=== PATIENT | male | born 1965 | race African-American/Black ===

== ENCOUNTER 2017-02-25 20:35 | Inpatient (IN) | payer MEDICARE, MEDICAID ==
[~2017-02-25] VITALS: Ht 167.6 cm; Wt 78.1 kg
[~2017-02-25 20:35] MED LIST: AMLO-512 PO; HYDR25TA PO; LISI-618 PO; LOVA20 PO; METF500T PO; QUET200T PO
[2017-02-25 20:47] LABS: GLUCOSE,POINT OF CARE 302 MG/DL (70-110)
[2017-02-25 21:05] LABS: BASOPHILS % (AUTO) 0.9 % (0.0-2.0); EOSINOPHILS % (AUTO) 3.5 % (1.0-6.0); HEMATOCRIT 42.4 % (41-53); HEMOGLOBIN 13.7 g/dL (13.5-17.5); LYMPHOCYTES # (AUTO) 1.4 K/uL (1.0-4.8); LYMPHOCYTES % (AUTO) 29.5 % (22.0-44.0); MEAN CORPUSCULAR HEMOGLOBIN 31.3 pg (26.0-34.0); MEAN CORPUSCULAR HGB CONC 32.3 G/dL (31.0-37.0); MEAN CORPUSCULAR VOLUME 97 fL (80-100); MONOCYTES # (AUTO) 0.7 K/uL (0.1-1.0); MONOCYTES % (AUTO) 14.5 % (2.0-9.0); NEUTROPHILS # (AUTO) 2.4 K/uL (1.8-7.7); NEUTROPHILS % (AUTO) 51.6 % (40.0-70.0); PLATELET COUNT (AUTO) 205 K/uL (150-450); RED BLOOD CELL COUNT(AUTO) 4.38 MIL/uL (4.50-5.90); RED CELL DISTRIBUTION WIDTH 15.4 % (11.5-14.5); WHITE BLOOD COUNT (AUTO) 4.7 K/uL (4.5-11.0)
[2017-02-25 21:17] LABS: ANION GAP 9 mmol/L (8-16); CALCIUM, TOTAL 9.7 mg/dL (8.8-10.5); CARBON DIOXIDE 28 mmol/L (22-29); CHLORIDE 103 mmol/L (98-107); CREATININE 1.29 mg/dL (0.60-1.30); GLOMERULAR FILTR. RATE CALC > 60 mL/min (>60); POTASSIUM 4.5 mmol/L (3.5-5.1); SODIUM SERUM 140 mmol/L (136-145); UREA NITROGEN, BLOOD 9 mg/dL (7-18)
[2017-02-25 21:23] LABS: ALANINE AMINOTRANSFERASE 80 U/L (12-78); ALBUMIN 3.7 g/dL (3.4-5.0); ASPARTATE AMINOTRANSFERASE 66 U/L (15-37); BILIRUBIN,TOTAL 0.5 mg/dL (0.1-1.0); TOTAL PROTEIN, SERUM 8.3 g/dL (6.4-8.2)
[2017-02-25 21:55] LABS: RBC MORPHOLOGY COMMENT NORMAL RBC MORPH
[2017-02-26] MEDS ORDERED: QUEtiapine FUMARATE 100 MG TABLET PO PRN (02:00)
[2017-02-26] MEDS ORDERED: DiphenhydrAMINE HCL 25 MG CAPSULE PO ONE (02:00)
[2017-02-26] MEDS ORDERED: LORazepam 2 MG TABLET PO ONE (02:00)
[2017-02-26] MEDS ORDERED: QUEtiapine FUMARATE 100 MG TABLET PO ONE (02:00)
[2017-02-26] MEDS ORDERED: ZOLPIDEM TARTRATE 10 MG TABLET PO PRN (02:00)
[2017-02-26] MEDS ORDERED: LORazepam 2 MG TABLET PO PRN (02:00)
[2017-02-26 03:39] VITALS: BP 139/98
[2017-02-26] MEDS ORDERED: PNEUMOCOCCAL VACCINE POLYVALENT 0.5 ML VIAL [PPSV23] IM ONE (04:45)
[2017-02-26 05:02] LABS: APPEARANCE,URINE TURBID (CLEAR); GLUCOSE, URINE (UA) >=1000 mg/dL (NEGATIVE); KETONES,URINE 15 mg/dL (NEGATIVE); LEUKOCYTE ESTERASE ,URINE NEGATIVE (NEGATIVE); OCCULT BLOOD,URINE SMALL (NEGATIVE); PROTEIN,URINE SEE CONFIRM (NEGATIVE)
[2017-02-26 05:06] LABS: ADD UA MICROSCOPIC YES
[2017-02-26 05:22] LABS: SULFOSALICYLIC ACID,URINE 1+ (Negative)
[2017-02-26 05:24] LABS: SQUAMOUS EPITHELIAL CELL,UR Few /LPF (None Seen)
[2017-02-26 05:25] LABS: URIC ACID CRYSTALS,URINE Moderate /LPF (None Seen)
[2017-02-26] MEDS ORDERED: PETROLATUM,WHITE 71 GM JELLY TP PRN (08:30)
[2017-02-26] MEDS ORDERED: ONDANSETRON HCL 4 MG TABLET PO PRN (08:30)
[2017-02-26] MEDS ORDERED: CloNIDine HCL 0.1 MG TABLET PO PRN (08:30)
[2017-02-26] MEDS ORDERED: LOPERAMIDE HCL 2 MG CAPSULE PO PRN (08:30)
[2017-02-26] MEDS ORDERED: MAG HYDROX/AL HYDROX/SIMETH ES 30 ML SUSPENSION UDCUP PO PRN (08:30)
[2017-02-26] MEDS ORDERED: BACITRACIN 28.4 GM OINTMENT TP PRN (08:30)
[2017-02-26] MEDS ORDERED: ACETAMINOPHEN 325 MG TABLET PO PRN (08:30)
[2017-02-26] MEDS ORDERED: DEXTROSE 50%-WATER 25 GM/50 ML SYRINGE IVP PRN (08:30)
[2017-02-26] MEDS ORDERED: MAGNESIUM HYDROXIDE SUSPENSION 30 ML UDCUP PO PRN (08:30)
[2017-02-26] MEDS ORDERED: IBUPROFEN 600 MG TABLET PO PRN (08:30)
[2017-02-26] MEDS ORDERED: ALBUTEROL SULFATE HFA 90 MCG/PUFF 8 GM INHALER IH PRN (08:30)
[2017-02-26] MEDS ORDERED: BENZOCAINE/MENTHOL LOZENGE [8 LOZENGES/PACKET] MM PRN (08:30)
[2017-02-26 09:00] VITALS: BP 163/103
[2017-02-26] MEDS: LISINOPRIL 5 MG TABLET PO SCH (09:10)
[2017-02-26] MEDS: LOVASTATIN 20 MG TABLET PO SCH (09:11)
[2017-02-26] MEDS: AmLODIPine BESYLATE 10 MG TABLET PO SCH (09:13)
[2017-02-26] MEDS: INSULIN ASPART 100 UNITS/ML SQ PRN ×3 (11:56→20:43)
[2017-02-26] MEDS: MetFORMIN HCL 500 MG TABLET PO SCH (16:42)
[2017-02-26 17:05] VITALS: BP 137/104
[2017-02-26] MEDS ORDERED: LORazepam 1 MG TABLET PO SCH (19:15)
[2017-02-26] MEDS: OLANZapine 5 MG TABLET PO SCH (20:31)
[2017-02-26 23:08] VITALS: BP 144/98
[2017-02-26] MEDS: LORazepam 1 MG TABLET PO SCH (23:17)
[2017-02-27 05:37] LABS: GLUCOSE,POINT OF CARE 291 MG/DL (70-110)
[2017-02-27] MEDS: INSULIN ASPART 100 UNITS/ML SQ PRN ×4 (06:53→20:32)
[2017-02-27] MEDS: MetFORMIN HCL 500 MG TABLET PO SCH ×2 (06:53→16:38)
[2017-02-27 06:58] LABS: HEMOGLOBIN A1C 9.9 % (4.5-6.2)
[2017-02-27 07:07] LABS: CHOL/HDL RATIO 4.4 (4.2-7.3); THYROID STIMULATING HORMONE 0.76 uIU/mL (0.36-3.74)
[2017-02-27 08:08] VITALS: BP 141/97
[2017-02-27] MEDS: FLUoxetine HCL 20 MG CAPSULE PO SCH (08:26)
[2017-02-27] MEDS: AmLODIPine BESYLATE 10 MG TABLET PO SCH (08:26)
[2017-02-27] MEDS: LOVASTATIN 20 MG TABLET PO SCH (08:26)
[2017-02-27] MEDS: LISINOPRIL 5 MG TABLET PO SCH (08:26)
[2017-02-27] MEDS: LORazepam 1 MG TABLET PO SCH ×3 (08:26→16:23)
[2017-02-27] MEDS ORDERED: INSULIN ASPART 100 UNITS/ML SQ ONE (11:30)
[2017-02-27 16:55] VITALS: BP 135/96
[2017-02-27] MEDS: OLANZapine 5 MG TABLET PO SCH (20:13)
[2017-02-28 05:37] LABS: GLUCOSE,POINT OF CARE 315 MG/DL (70-110)
[2017-02-28] MEDS: MetFORMIN HCL 500 MG TABLET PO SCH ×2 (06:29→16:36)
[2017-02-28] MEDS: INSULIN ASPART 100 UNITS/ML SQ PRN ×4 (07:16→20:53)
[2017-02-28 08:00] VITALS: BP 118/85
[2017-02-28] MEDS: CHOLECALCIFEROL (VIT D3) 1,000 UNITS TABLET PO SCH (08:10)
[2017-02-28] MEDS: LISINOPRIL 5 MG TABLET PO SCH (08:11)
[2017-02-28] MEDS: FLUoxetine HCL 20 MG CAPSULE PO SCH (08:11)
[2017-02-28] MEDS: LORazepam 1 MG TABLET PO SCH (08:11)
[2017-02-28] MEDS: LOVASTATIN 20 MG TABLET PO SCH (08:11)
[2017-02-28] MEDS: AmLODIPine BESYLATE 10 MG TABLET PO SCH (08:11)
[2017-02-28] MEDS ORDERED: LORazepam 1 MG TABLET PO SCH (09:00)
[2017-02-28 16:28] VITALS: BP 135/99
[2017-02-28] MEDS ORDERED: LORazepam 2 MG/ML VIAL IM ONE (20:00)
[2017-02-28] MEDS ORDERED: LORazepam 1 MG TABLET PO ONE (20:00)
[2017-02-28] MEDS: OLANZapine 5 MG TABLET PO SCH (20:32)
[2017-03-01 05:37] LABS: GLUCOSE,POINT OF CARE 313 MG/DL (70-110)
[2017-03-01] MEDS: MetFORMIN HCL 500 MG TABLET PO SCH ×2 (06:47→16:47)
[2017-03-01] MEDS: INSULIN ASPART 100 UNITS/ML SQ PRN ×4 (07:04→20:36)
[2017-03-01 08:00] VITALS: BP 158/110
[2017-03-01] MEDS: LISINOPRIL 5 MG TABLET PO SCH (08:17)
[2017-03-01] MEDS: FLUoxetine HCL 20 MG CAPSULE PO SCH (08:17)
[2017-03-01] MEDS: LOVASTATIN 20 MG TABLET PO SCH (08:17)
[2017-03-01] MEDS: CHOLECALCIFEROL (VIT D3) 1,000 UNITS TABLET PO SCH (08:18)
[2017-03-01] MEDS: AmLODIPine BESYLATE 10 MG TABLET PO SCH (08:18)
[2017-03-01 09:00] VITALS: BP 127/85
[2017-03-01 17:43] VITALS: BP 121/88
[2017-03-01] MEDS: OLANZapine 5 MG TABLET PO SCH (20:51)
[2017-03-02 03:58] LABS: HEPATITIS Bs ANTIGEN SCREEN P Negative (Negative); HEPATITIS C AB SCREEN 0.1 s/co ratio (0.0-0.9)
[2017-03-02 05:17] LABS: GLUCOSE,POINT OF CARE 298 MG/DL (70-110)
[2017-03-02] MEDS: MetFORMIN HCL 500 MG TABLET PO SCH ×2 (06:47→16:42)
[2017-03-02] MEDS: INSULIN ASPART 100 UNITS/ML SQ PRN ×3 (06:55→17:21)
[2017-03-02 08:34] VITALS: BP 113/98
[2017-03-02] MEDS ORDERED: FLUoxetine HCL 20 MG CAPSULE PO SCH (09:00)
[2017-03-02] MEDS: AmLODIPine BESYLATE 10 MG TABLET PO SCH (09:12)
[2017-03-02] MEDS: LISINOPRIL 5 MG TABLET PO SCH (09:12)
[2017-03-02] MEDS: LOVASTATIN 20 MG TABLET PO SCH (09:13)
[2017-03-02] MEDS: CHOLECALCIFEROL (VIT D3) 1,000 UNITS TABLET PO SCH (09:13)
[2017-03-02 11:12] LABS: GLUCOSE COMMENT 1 Received Meds; GLUCOSE,POINT OF CARE 373 MG/DL (70-110)
[2017-03-02] MEDS ORDERED: FLUO-191 PO (15:06)
[2017-03-02] MEDS ORDERED: OLAN5TAB2 PO (15:07)
[2017-03-02] MEDS ORDERED: VITAD1000 PO (15:09)
[2017-03-02] MEDS ORDERED: METF500T4 PO (15:10)
[2017-03-02 17:12] LABS: GLUCOSE COMMENT 1 Received Meds; GLUCOSE,POINT OF CARE 281 MG/DL (70-110)
== END 2017-03-02 18:45 | disposition home or self-care (01) | DRG 885 ==
LOC: EMS 20:37 → 3EX 02-26 02:30
PROVIDERS: ADMIT Psychiatry & Neurology Psychiatry; ATTEND Psychiatry & Neurology Psychiatry
DX: F25.0 Schizoaffective disorder, bipolar type (principal); F15.20 Other stimulant dependence, uncomplicated; R45.851 Suicidal ideations; F10.20 Alcohol dependence, uncomplicated; Y90.0 Blood alcohol level of less than 20 mg/100 ml; E78.5 Hyperlipidemia, unspecified; F29 Unspecified psychosis not due to a substance or known physiological condition; I10 Essential (primary) hypertension; G47.00 Insomnia, unspecified; E11.65 Type 2 diabetes mellitus with hyperglycemia; K59.00 Constipation, unspecified; E55.9 Vitamin D deficiency, unspecified; J44.9 Chronic obstructive pulmonary disease, unspecified; Z59.0 Homelessness; Z91.14 Patient's other noncompliance with medication regimen; Z79.899 Other long term (current) drug therapy; Z79.84 Long term (current) use of oral hypoglycemic drugs; Z71.41 Alcohol abuse counseling and surveillance of alcoholic; Z71.51 Drug abuse counseling and surveillance of drug abuser; Z28.21 Immunization not carried out because of patient refusal
CPT/HCPCS: 80074; 82306; 82962; 83036; 84443; 99285; G0480; J1815

== ENCOUNTER 2017-10-04 12:54 | Emergency (ER) | payer OTHER, MEDICAID ==
[~2017-10-04] VITALS: Ht 167.6 cm; Wt 81.8 kg
[~2017-10-04 12:54] MED LIST changes: +FLUO-191 PO; -HYDR25TA PO; +OLAN5TAB2 PO; -QUET200T PO; +VITAD1000 PO
[2017-10-04] MEDS ORDERED: LISI-660 PO (13:02)
[2017-10-04 13:08] LABS: GLUCOSE,POINT OF CARE 149 MG/DL (70-110)
[2017-10-04 14:35] VITALS: BP 121/81
== END 2017-10-04 14:54 | disposition home or self-care (01) ==
LOC: EMS 12:55
DX: J40 Bronchitis, not specified as acute or chronic (principal); Z76.0 Encounter for issue of repeat prescription; E11.9 Type 2 diabetes mellitus without complications; I10 Essential (primary) hypertension; F20.9 Schizophrenia, unspecified; Z59.0 Homelessness; Z87.891 Personal history of nicotine dependence
CPT/HCPCS: 82962; 99283

== ENCOUNTER 2017-12-16 22:15 | Inpatient (IN) | payer MEDICARE, MEDICAID ==
[~2017-12-16] VITALS: Ht 167.6 cm; Wt 82.1 kg
[~2017-12-16 22:15] MED LIST changes: -LISI-618 PO; +LISI-660 PO
[2017-12-16] MEDS ORDERED: HYDR25TA PO (22:24)
[2017-12-16 22:27] LABS: GLUCOSE,POINT OF CARE 299 MG/DL (70-110)
[2017-12-16 22:45] LABS: BASOPHILS # (AUTO) 0.06 K/uL (0.00-0.20); BASOPHILS % (AUTO) 0.6 % (0.0-2.0); EOSINOPHILS # (AUTO) 0.09 K/uL (0.00-0.70); EOSINOPHILS % (AUTO) 1.05 % (1.0-6.0); HEMATOCRIT 37.4 % (41-53); HEMOGLOBIN 12.3 g/dL (13.5-17.5); LYMPHOCYTES % (AUTO) 22.1 % (22.0-44.0); MEAN CORPUSCULAR HEMOGLOBIN 31.5 pg (26.0-34.0); MEAN CORPUSCULAR HGB CONC 32.9 G/dL (31.0-37.0); MEAN CORPUSCULAR VOLUME 96 fL (80-100); MONOCYTES # (AUTO) 0.7 K/uL (0.1-1.0); MONOCYTES % (AUTO) 7.7 % (2.0-9.0); NEUTROPHILS # (AUTO) 6.2 K/uL (1.8-7.7); NEUTROPHILS % (AUTO) 68.6 % (40.0-70.0); PLATELET COUNT (AUTO) 237 K/uL (150-450); RED BLOOD CELL COUNT(AUTO) 3.91 MIL/uL (4.50-5.90); RED CELL DISTRIBUTION WIDTH 13.5 % (11.5-14.5)
[2017-12-16 22:52] LABS: ANION GAP 13 mmol/L (8-16); CALCIUM, TOTAL 9.8 mg/dL (8.8-10.5); CARBON DIOXIDE 26 mmol/L (22-29); CHLORIDE 95 mmol/L (98-107); CREATININE 1.34 mg/dL (0.60-1.30); GLOMERULAR FILTR. RATE CALC > 60 mL/min (>60); GLUCOSE,RANDOM 287 mg/dL (70-110); POTASSIUM 3.4 mmol/L (3.5-5.1); SODIUM SERUM 134 mmol/L (136-145); UREA NITROGEN, BLOOD 17 mg/dL (7-18)
[2017-12-16 22:57] LABS: ALANINE AMINOTRANSFERASE 19 U/L (12-78); ALBUMIN 4.2 g/dL (3.4-5.0); ALKALINE PHOSPHATASE 85 U/L (46-116); ASPARTATE AMINOTRANSFERASE 18 U/L (15-37); BILIRUBIN,TOTAL 0.5 mg/dL (0.1-1.0); TOTAL PROTEIN, SERUM 8.8 g/dL (6.4-8.2)
[2017-12-16] MEDS ORDERED: HALOPERIDOL 5 MG TABLET PO ONE (23:30)
[2017-12-16] MEDS ORDERED: LORazepam 2 MG TABLET PO ONE (23:30)
[2017-12-16] MEDS ORDERED: ZOLPIDEM TARTRATE 10 MG TABLET PO PRN (23:45)
[2017-12-16] MEDS ORDERED: HALOPERIDOL 5 MG TABLET PO PRN (23:45)
[2017-12-17 00:22] LABS: GLUCOSE,POINT OF CARE 253 MG/DL (70-110)
[2017-12-17 00:51] LABS: AMPHET/METH SCREEN,URINE POSITIVE (NEGATIVE); BARBITURATE SCREEN, URINE NEGATIVE (NEGATIVE); BENZODIAZEPINES SCREEN,URINE NEGATIVE (NEGATIVE); CANNABINOID SCREEN,URINE NEGATIVE (NEGATIVE); COCAINE SCREEN,URINE POSITIVE (NEGATIVE); METHADONE SCREEN, URINE NEGATIVE (NEGATIVE); OPIATE SCREEN,URINE NEGATIVE (NEGATIVE); PHENCYCLIDINE SCREEN,URINE NEGATIVE (NEGATIVE)
[2017-12-17 01:45] VITALS: BP 127/97
[2017-12-17 02:07] LABS: GLUCOMETER DEV NAME(LOC) BV2S; GLUCOSE,POINT OF CARE 208 MG/DL (70-110)
[2017-12-17] MEDS ORDERED: POTASSIUM CHLORIDE 20 MEQ ER TABLET PO ONE (08:15)
[2017-12-17] MEDS ORDERED: MAG HYDROX/AL HYDROX/SIMETH ES 30 ML SUSPENSION UDCUP PO PRN (08:15)
[2017-12-17] MEDS ORDERED: CloNIDine HCL 0.1 MG TABLET PO PRN (08:15)
[2017-12-17] MEDS ORDERED: ONDANSETRON HCL 4 MG TABLET PO PRN (08:15)
[2017-12-17] MEDS ORDERED: MAGNESIUM HYDROXIDE SUSPENSION 30 ML UDCUP PO PRN (08:15)
[2017-12-17] MEDS ORDERED: BACITRACIN 28.4 GM OINTMENT TP PRN (08:15)
[2017-12-17] MEDS ORDERED: ALBUTEROL SULFATE HFA 90 MCG/PUFF 8 GM INHALER IH PRN (08:15)
[2017-12-17] MEDS ORDERED: BENZOCAINE/MENTHOL LOZENGE MM PRN (08:15)
[2017-12-17] MEDS ORDERED: LOPERAMIDE HCL 2 MG CAPSULE PO PRN (08:15)
[2017-12-17] MEDS ORDERED: GLUCAGON,HUMAN RECOMBINANT 1 MG VIAL IM PRN (08:15)
[2017-12-17] MEDS ORDERED: PETROLATUM,WHITE 71 GM JELLY TP PRN (08:15)
[2017-12-17 08:29] LABS: CHOL/HDL RATIO 3.4 (4.2-7.3)
[2017-12-17] MEDS: LORazepam 2 MG TABLET PO PRN (08:30)
[2017-12-17] MEDS: OMEPRAZOLE 20 MG CAPSULE PO SCH (08:30)
[2017-12-17] MEDS: HYDROCHLOROTHIAZIDE 25 MG TABLET PO SCH (08:30)
[2017-12-17] MEDS: DOCUSATE SODIUM 100 MG CAPSULE PO SCH (08:30)
[2017-12-17] MEDS: AmLODIPine BESYLATE 10 MG TABLET PO SCH (08:30)
[2017-12-17 08:57] VITALS: BP 122/88
[2017-12-17] MEDS: FLUoxetine HCL 20 MG CAPSULE PO SCH (09:22)
[2017-12-17] MEDS: INSULIN ASPART 100 UNITS/ML SQ PRN ×3 (11:04→20:44)
[2017-12-17] MEDS: LOVASTATIN 20 MG TABLET PO SCH (12:24)
[2017-12-17 16:07] VITALS: BP 124/89
[2017-12-17 16:23] LABS: GLUCOMETER DEV NAME(LOC) BV2S; GLUCOSE,POINT OF CARE 314 MG/DL (70-110)
[2017-12-17 16:23] LABS: GLUCOMETER DEV NAME(LOC) BV2S; GLUCOSE,POINT OF CARE 214 MG/DL (70-110)
[2017-12-17] MEDS: MetFORMIN HCL 500 MG TABLET PO SCH (16:43)
[2017-12-17 20:17] LABS: GLUCOMETER DEV NAME(LOC) BV2S; GLUCOSE,POINT OF CARE 290 MG/DL (70-110)
[2017-12-17] MEDS: OLANZapine 5 MG TABLET PO SCH (20:42)
[2017-12-18 06:47] VITALS: BP 128/90
[2017-12-18] MEDS: MetFORMIN HCL 500 MG TABLET PO SCH ×2 (06:54→16:37)
[2017-12-18] MEDS: INSULIN ASPART 100 UNITS/ML SQ PRN ×4 (06:58→20:42)
[2017-12-18 07:07] LABS: GLUCOMETER DEV NAME(LOC) BV2S; GLUCOSE,POINT OF CARE 245 MG/DL (70-110)
[2017-12-18 07:54] LABS: ANION GAP 9 mmol/L (8-16); CALCIUM, TOTAL 9.3 mg/dL (8.8-10.5); CARBON DIOXIDE 30 mmol/L (22-29); CHLORIDE 97 mmol/L (98-107); CREATININE 1.21 mg/dL (0.60-1.30); GLOMERULAR FILTR. RATE CALC > 60 mL/min (>60); GLUCOSE,RANDOM 243 mg/dL (70-110); POTASSIUM 3.7 mmol/L (3.5-5.1); SODIUM SERUM 136 mmol/L (136-145); UREA NITROGEN, BLOOD 15 mg/dL (7-18)
[2017-12-18 08:40] VITALS: BP 118/81
[2017-12-18] MEDS: FLUoxetine HCL 20 MG CAPSULE PO SCH (08:44)
[2017-12-18] MEDS: OMEPRAZOLE 20 MG CAPSULE PO SCH (08:44)
[2017-12-18] MEDS: DOCUSATE SODIUM 100 MG CAPSULE PO SCH (08:44)
[2017-12-18] MEDS: LOVASTATIN 20 MG TABLET PO SCH (08:44)
[2017-12-18] MEDS: HYDROCHLOROTHIAZIDE 25 MG TABLET PO SCH (08:44)
[2017-12-18] MEDS: AmLODIPine BESYLATE 10 MG TABLET PO SCH (08:44)
[2017-12-18 11:12] LABS: GLUCOMETER DEV NAME(LOC) BV2S; GLUCOSE,POINT OF CARE 366 MG/DL (70-110)
[2017-12-18] MEDS: LORazepam 2 MG TABLET PO PRN (11:51)
[2017-12-18 16:13] VITALS: BP 119/87
[2017-12-18 17:58] LABS: GLUCOMETER DEV NAME(LOC) BV2S; GLUCOSE,POINT OF CARE 305 MG/DL (70-110)
[2017-12-18] MEDS: OLANZapine 5 MG TABLET PO SCH (20:36)
[2017-12-19 00:15] VITALS: BP 112/70
[2017-12-19 00:37] LABS: GLUCOMETER DEV NAME(LOC) BV2S; GLUCOSE,POINT OF CARE 280 MG/DL (70-110)
[2017-12-19 06:48] LABS: GLUCOMETER DEV NAME(LOC) BV2S; GLUCOSE,POINT OF CARE 225 MG/DL (70-110)
[2017-12-19] MEDS: MetFORMIN HCL 500 MG TABLET PO SCH ×2 (07:11→17:24)
[2017-12-19] MEDS: INSULIN ASPART 100 UNITS/ML SQ PRN ×4 (07:14→20:55)
[2017-12-19 08:32] VITALS: BP 113/73
[2017-12-19] MEDS: DOCUSATE SODIUM 100 MG CAPSULE PO SCH (08:37)
[2017-12-19] MEDS: OMEPRAZOLE 20 MG CAPSULE PO SCH (08:37)
[2017-12-19] MEDS: AmLODIPine BESYLATE 10 MG TABLET PO SCH (08:37)
[2017-12-19] MEDS: LOVASTATIN 20 MG TABLET PO SCH (08:37)
[2017-12-19] MEDS: HYDROCHLOROTHIAZIDE 25 MG TABLET PO SCH (08:37)
[2017-12-19] MEDS: FLUoxetine HCL 20 MG CAPSULE PO SCH (08:38)
[2017-12-19 11:01] VITALS: BP 110/72
[2017-12-19] MEDS: ACETAMINOPHEN 325 MG TABLET PO PRN (11:01)
[2017-12-19 11:32] LABS: GLUCOMETER DEV NAME(LOC) BV2S; GLUCOSE,POINT OF CARE 251 MG/DL (70-110)
[2017-12-19] MEDS: LORazepam 2 MG TABLET PO PRN (14:58)
[2017-12-19 16:22] VITALS: BP 124/89
[2017-12-19 16:52] LABS: GLUCOMETER DEV NAME(LOC) BV2S; GLUCOSE,POINT OF CARE 383 MG/DL (70-110)
[2017-12-19] MEDS: OLANZapine 5 MG TABLET PO SCH (20:50)
[2017-12-19 21:03] LABS: GLUCOMETER DEV NAME(LOC) BV2S; GLUCOSE,POINT OF CARE 220 MG/DL (70-110)
[2017-12-20 01:06] VITALS: BP 132/86
[2017-12-20 06:02] LABS: GLUCOMETER DEV NAME(LOC) BV2S; GLUCOSE,POINT OF CARE 229 MG/DL (70-110)
[2017-12-20] MEDS: MetFORMIN HCL 500 MG TABLET PO SCH ×2 (06:42→16:47)
[2017-12-20] MEDS: INSULIN ASPART 100 UNITS/ML SQ PRN ×4 (06:42→20:39)
[2017-12-20 07:40] VITALS: BP 136/89
[2017-12-20 08:00] VITALS: BP 136/89
[2017-12-20] MEDS: DOCUSATE SODIUM 100 MG CAPSULE PO SCH (08:18)
[2017-12-20] MEDS: HYDROCHLOROTHIAZIDE 25 MG TABLET PO SCH (08:18)
[2017-12-20] MEDS: FLUoxetine HCL 20 MG CAPSULE PO SCH (08:18)
[2017-12-20] MEDS: OMEPRAZOLE 20 MG CAPSULE PO SCH (08:19)
[2017-12-20] MEDS: AmLODIPine BESYLATE 10 MG TABLET PO SCH (08:19)
[2017-12-20] MEDS: LOVASTATIN 20 MG TABLET PO SCH (08:19)
[2017-12-20 11:12] LABS: GLUCOMETER DEV NAME(LOC) BV2S; GLUCOSE,POINT OF CARE 228 MG/DL (70-110)
[2017-12-20 12:54] VITALS: BP 128/82
[2017-12-20] MEDS: ACETAMINOPHEN 325 MG TABLET PO PRN (12:54)
[2017-12-20] MEDS: IBUPROFEN 600 MG TABLET PO PRN (16:23)
[2017-12-20 16:24] VITALS: BP 131/86
[2017-12-20 18:37] LABS: GLUCOMETER DEV NAME(LOC) BV2S; GLUCOSE,POINT OF CARE 221 MG/DL (70-110)
[2017-12-20] MEDS: GlipiZIDE 10 MG TABLET PO SCH (19:38)
[2017-12-20 20:17] LABS: GLUCOMETER DEV NAME(LOC) BV2S; GLUCOSE,POINT OF CARE 236 MG/DL (70-110)
[2017-12-20] MEDS: OLANZapine 5 MG TABLET PO SCH (20:31)
[2017-12-21 00:50] VITALS: BP 140/90
[2017-12-21 06:48] LABS: GLUCOMETER DEV NAME(LOC) BV2S; GLUCOSE,POINT OF CARE 214 MG/DL (70-110)
[2017-12-21] MEDS: GlipiZIDE 10 MG TABLET PO SCH ×2 (07:05→16:38)
[2017-12-21] MEDS: MetFORMIN HCL 500 MG TABLET PO SCH ×2 (07:05→16:43)
[2017-12-21] MEDS: INSULIN ASPART 100 UNITS/ML SQ PRN ×4 (07:16→20:34)
[2017-12-21] MEDS: FLUoxetine HCL 20 MG CAPSULE PO SCH (08:19)
[2017-12-21] MEDS: AmLODIPine BESYLATE 10 MG TABLET PO SCH (08:19)
[2017-12-21] MEDS: DOCUSATE SODIUM 100 MG CAPSULE PO SCH (08:19)
[2017-12-21] MEDS: OMEPRAZOLE 20 MG CAPSULE PO SCH (08:19)
[2017-12-21] MEDS: HYDROCHLOROTHIAZIDE 25 MG TABLET PO SCH (08:19)
[2017-12-21] MEDS: LOVASTATIN 20 MG TABLET PO SCH (08:19)
[2017-12-21 08:29] VITALS: BP 118/81
[2017-12-21 11:07] LABS: GLUCOMETER DEV NAME(LOC) BV2S; GLUCOSE,POINT OF CARE 174 MG/DL (70-110)
[2017-12-21 12:04] VITALS: BP 124/78
[2017-12-21] MEDS: IBUPROFEN 600 MG TABLET PO PRN (12:04)
[2017-12-21 16:07] VITALS: BP 121/80
[2017-12-21 16:32] LABS: GLUCOMETER DEV NAME(LOC) BV2S; GLUCOSE,POINT OF CARE 162 MG/DL (70-110)
[2017-12-21 20:07] LABS: GLUCOMETER DEV NAME(LOC) BV2S; GLUCOSE,POINT OF CARE 275 MG/DL (70-110)
[2017-12-21] MEDS: OLANZapine 5 MG TABLET PO SCH (20:33)
[2017-12-22] MEDS ORDERED: OMEP20 PO (05:20)
[2017-12-22] MEDS ORDERED: AMLO-511 PO (05:20)
[2017-12-22] MEDS ORDERED: GLIP10 PO (05:20)
[2017-12-22] MEDS ORDERED: DSS100 PO (05:20)
[2017-12-22] MEDS: GlipiZIDE 10 MG TABLET PO SCH (06:32)
[2017-12-22] MEDS: MetFORMIN HCL 500 MG TABLET PO SCH (06:32)
[2017-12-22] MEDS: INSULIN ASPART 100 UNITS/ML SQ PRN ×2 (06:34→11:04)
[2017-12-22 06:38] LABS: GLUCOMETER DEV NAME(LOC) BV2S; GLUCOSE,POINT OF CARE 210 MG/DL (70-110)
[2017-12-22 06:58] VITALS: BP 140/89
[2017-12-22] MEDS ORDERED: HYDR25TA PO (07:08)
[2017-12-22 08:01] VITALS: BP 123/90
[2017-12-22] MEDS: OMEPRAZOLE 20 MG CAPSULE PO SCH (08:03)
[2017-12-22] MEDS: AmLODIPine BESYLATE 10 MG TABLET PO SCH (08:03)
[2017-12-22] MEDS: DOCUSATE SODIUM 100 MG CAPSULE PO SCH (08:03)
[2017-12-22] MEDS: HYDROCHLOROTHIAZIDE 25 MG TABLET PO SCH (08:03)
[2017-12-22] MEDS: FLUoxetine HCL 20 MG CAPSULE PO SCH (08:03)
[2017-12-22] MEDS: LOVASTATIN 20 MG TABLET PO SCH (08:03)
[2017-12-22 11:13] LABS: GLUCOMETER DEV NAME(LOC) BV2S; GLUCOSE,POINT OF CARE 185 MG/DL (70-110)
[2017-12-22] MEDS: IBUPROFEN 600 MG TABLET PO PRN (11:59)
== END 2017-12-22 13:36 | disposition home or self-care (01) | DRG 885 ==
LOC: EMS 22:17 → B2X 12-17 00:11
PROVIDERS: ADMIT Psychiatry & Neurology Child & Adolescent Psychiatry; ATTEND Psychiatry & Neurology Child & Adolescent Psychiatry
DX: F25.0 Schizoaffective disorder, bipolar type (principal); R45.851 Suicidal ideations; E11.65 Type 2 diabetes mellitus with hyperglycemia; E87.1 Hypo-osmolality and hyponatremia; I10 Essential (primary) hypertension; G47.00 Insomnia, unspecified; N28.9 Disorder of kidney and ureter, unspecified; F41.9 Anxiety disorder, unspecified; F15.10 Other stimulant abuse, uncomplicated; F14.10 Cocaine abuse, uncomplicated; F10.10 Alcohol abuse, uncomplicated; E87.6 Hypokalemia; E78.5 Hyperlipidemia, unspecified; Z59.0 Homelessness; Z56.0 Unemployment, unspecified; Z71.6 Tobacco abuse counseling; Z71.41 Alcohol abuse counseling and surveillance of alcoholic; Z71.51 Drug abuse counseling and surveillance of drug abuser; Z79.899 Other long term (current) drug therapy
CPT/HCPCS: 82962; 83036; 84132; 84295; 99285; G0480

== ENCOUNTER 2017-12-29 07:54 | Inpatient (IN) | payer MEDICARE, MEDICAID ==
[~2017-12-29] VITALS: Ht 167.6 cm; Wt 82.1 kg
[~2017-12-29 07:54] MED LIST changes: +AMLO-511 PO; -AMLO-512 PO; +DSS100 PO; +GLIP10 PO; +HYDR25TA PO; -LISI-660 PO; +OMEP20 PO; -VITAD1000 PO
[2017-12-29 08:12] LABS: GLUCOSE,POINT OF CARE 295 MG/DL (70-110)
[2017-12-29] MEDS ORDERED: HALOPERIDOL 5 MG TABLET PO ONE (08:30)
[2017-12-29 08:45] LABS: BASOPHILS % (AUTO) 1.2 % (0.0-2.0); EOSINOPHILS % (AUTO) 2.1 % (1.0-6.0); HEMATOCRIT 37.6 % (41-53); HEMOGLOBIN 12.6 g/dL (13.5-17.5); LYMPHOCYTES # (AUTO) 1.4 K/uL (1.0-4.8); LYMPHOCYTES % (AUTO) 22.1 % (22.0-44.0); MEAN CORPUSCULAR HEMOGLOBIN 31.7 pg (26.0-34.0); MEAN CORPUSCULAR HGB CONC 33.4 G/dL (31.0-37.0); MEAN CORPUSCULAR VOLUME 95 fL (80-100); MONOCYTES # (AUTO) 0.6 K/uL (0.1-1.0); MONOCYTES % (AUTO) 9.5 % (2.0-9.0); NEUTROPHILS # (AUTO) 4.1 K/uL (1.8-7.7); NEUTROPHILS % (AUTO) 65.1 % (40.0-70.0); PLATELET COUNT (AUTO) 236 K/uL (150-450); RED BLOOD CELL COUNT(AUTO) 3.96 MIL/uL (4.50-5.90); RED CELL DISTRIBUTION WIDTH 14.1 % (11.5-14.5)
[2017-12-29 09:20] LABS: ALANINE AMINOTRANSFERASE 20 U/L (12-78); ALBUMIN 3.7 g/dL (3.4-5.0); ALKALINE PHOSPHATASE 94 U/L (46-116); ASPARTATE AMINOTRANSFERASE 25 U/L (15-37); BILIRUBIN,TOTAL 0.4 mg/dL (0.1-1.0); CALCIUM, TOTAL 9.3 mg/dL (8.8-10.5); CHLORIDE 98 mmol/L (98-107); CREATININE 1.13 mg/dL (0.60-1.30); GLOMERULAR FILTR. RATE CALC > 60 mL/min (>60); GLUCOSE,RANDOM 260 mg/dL (70-110); POTASSIUM 3.4 mmol/L (3.5-5.1); SODIUM SERUM 136 mmol/L (136-145); UREA NITROGEN, BLOOD 14 mg/dL (7-18)
[2017-12-29 09:29] LABS: ANION GAP 18 mmol/L (8-16); CARBON DIOXIDE 20 mmol/L (22-29)
[2017-12-29] MEDS ORDERED: LORazepam 2 MG TABLET PO ONE (10:00)
[2017-12-29] MEDS ORDERED: HALOPERIDOL 5 MG TABLET PO PRN (10:30)
[2017-12-29] MEDS ORDERED: ZOLPIDEM TARTRATE 10 MG TABLET PO PRN (10:30)
[2017-12-29 10:32] LABS: GLUCOSE,POINT OF CARE 207 MG/DL (70-110)
[2017-12-29 10:56] LABS: AMPHET/METH SCREEN,URINE NEGATIVE (NEGATIVE); BARBITURATE SCREEN, URINE NEGATIVE (NEGATIVE); BENZODIAZEPINES SCREEN,URINE NEGATIVE (NEGATIVE); CANNABINOID SCREEN,URINE NEGATIVE (NEGATIVE); COCAINE SCREEN,URINE POSITIVE (NEGATIVE); METHADONE SCREEN, URINE NEGATIVE (NEGATIVE); OPIATE SCREEN,URINE NEGATIVE (NEGATIVE)
[2017-12-29 10:58] LABS: PHENCYCLIDINE SCREEN,URINE NEGATIVE (NEGATIVE)
[2017-12-29] MEDS ORDERED: POTASSIUM CHLORIDE 20 MEQ ER TABLET PO ONE (11:00)
[2017-12-29 11:08] LABS: GLUCOSE,POINT OF CARE 192 MG/DL (70-110)
[2017-12-29] MEDS: AmLODIPine BESYLATE 5 MG TABLET PO SCH (13:32)
[2017-12-29] MEDS: HYDROCHLOROTHIAZIDE 25 MG TABLET PO SCH (13:32)
[2017-12-29 16:05] VITALS: BP 140/83
[2017-12-29] MEDS: GlipiZIDE 10 MG TABLET PO SCH (16:18)
[2017-12-29 16:22] LABS: GLUCOMETER DEV NAME(LOC) BV2S; GLUCOSE,POINT OF CARE 266 MG/DL (70-110)
[2017-12-29] MEDS: MetFORMIN HCL 500 MG TABLET PO SCH (16:40)
[2017-12-29 20:23] LABS: GLUCOMETER DEV NAME(LOC) BV2S; GLUCOSE,POINT OF CARE 251 MG/DL (70-110)
[2017-12-29] MEDS: OLANZapine 5 MG TABLET PO SCH (20:33)
[2017-12-29] MEDS ORDERED: GLUCAGON,HUMAN RECOMBINANT 1 MG VIAL IM PRN (21:45)
[2017-12-29] MEDS: INSULIN ASPART 100 UNITS/ML SQ PRN (21:50)
[2017-12-30 00:01] VITALS: BP 131/81
[2017-12-30 06:00] VITALS: BP 132/89
[2017-12-30 06:03] LABS: GLUCOMETER DEV NAME(LOC) BV2S; GLUCOSE,POINT OF CARE 273 MG/DL (70-110)
[2017-12-30] MEDS: MetFORMIN HCL 500 MG TABLET PO SCH ×2 (06:05→17:07)
[2017-12-30] MEDS: GlipiZIDE 10 MG TABLET PO SCH ×2 (06:05→16:34)
[2017-12-30] MEDS: INSULIN ASPART 100 UNITS/ML SQ PRN ×4 (06:48→21:05)
[2017-12-30] MEDS: OMEPRAZOLE 20 MG CAPSULE PO SCH (08:30)
[2017-12-30] MEDS: LOVASTATIN 20 MG TABLET PO SCH (08:30)
[2017-12-30] MEDS: DOCUSATE SODIUM 100 MG CAPSULE PO SCH (08:30)
[2017-12-30] MEDS: AmLODIPine BESYLATE 5 MG TABLET PO SCH (08:30)
[2017-12-30] MEDS: HYDROCHLOROTHIAZIDE 25 MG TABLET PO SCH (08:30)
[2017-12-30] MEDS: FLUoxetine HCL 20 MG CAPSULE PO SCH (08:31)
[2017-12-30 08:47] VITALS: BP 137/90
[2017-12-30 08:49] VITALS: BP 131/67
[2017-12-30 11:22] LABS: GLUCOMETER DEV NAME(LOC) BV2S; GLUCOSE,POINT OF CARE 290 MG/DL (70-110)
[2017-12-30 16:17] VITALS: BP 116/68
[2017-12-30 16:18] LABS: GLUCOMETER DEV NAME(LOC) BV2S; GLUCOSE,POINT OF CARE 348 MG/DL (70-110)
[2017-12-30 20:00] VITALS: BP 121/82
[2017-12-30] MEDS ORDERED: ACETAMINOPHEN 325 MG TABLET PO PRN (20:00)
[2017-12-30] MEDS: IBUPROFEN 600 MG TABLET PO PRN (20:06)
[2017-12-30 20:18] LABS: GLUCOMETER DEV NAME(LOC) BV2S; GLUCOSE,POINT OF CARE 197 MG/DL (70-110)
[2017-12-30] MEDS: OLANZapine 5 MG TABLET PO SCH (20:32)
[2017-12-31 00:30] VITALS: BP 131/77
[2017-12-31 06:02] LABS: GLUCOMETER DEV NAME(LOC) BV2S; GLUCOSE,POINT OF CARE 267 MG/DL (70-110)
[2017-12-31] MEDS: GlipiZIDE 10 MG TABLET PO SCH ×2 (06:37→16:15)
[2017-12-31] MEDS: INSULIN ASPART 100 UNITS/ML SQ PRN ×4 (06:52→21:29)
[2017-12-31] MEDS: MetFORMIN HCL 500 MG TABLET PO SCH ×2 (07:00→16:36)
[2017-12-31 08:11] VITALS: BP 123/82
[2017-12-31] MEDS: LOVASTATIN 20 MG TABLET PO SCH (08:29)
[2017-12-31] MEDS: AmLODIPine BESYLATE 5 MG TABLET PO SCH (08:29)
[2017-12-31] MEDS: HYDROCHLOROTHIAZIDE 25 MG TABLET PO SCH (08:29)
[2017-12-31] MEDS: OMEPRAZOLE 20 MG CAPSULE PO SCH (08:30)
[2017-12-31] MEDS: DOCUSATE SODIUM 100 MG CAPSULE PO SCH (08:30)
[2017-12-31] MEDS: FLUoxetine HCL 20 MG CAPSULE PO SCH (08:30)
[2017-12-31 09:37] LABS: CHOL/HDL RATIO 5.3 (4.2-7.3); POTASSIUM 3.6 mmol/L (3.5-5.1)
[2017-12-31 11:33] LABS: GLUCOMETER DEV NAME(LOC) BV2S; GLUCOSE,POINT OF CARE 290 MG/DL (70-110)
[2017-12-31 12:54] VITALS: BP 118/78
[2017-12-31] MEDS: IBUPROFEN 600 MG TABLET PO PRN (12:54)
[2017-12-31 16:24] VITALS: BP 111/79
[2017-12-31 18:09] LABS: GLUCOMETER DEV NAME(LOC) BV2S; GLUCOSE,POINT OF CARE 196 MG/DL (70-110)
[2017-12-31 21:32] LABS: GLUCOMETER DEV NAME(LOC) 3EX 1; GLUCOSE,POINT OF CARE 223 MG/DL (70-110)
[2017-12-31] MEDS: OLANZapine 5 MG TABLET PO SCH (21:33)
[2018-01-01 06:33] LABS: GLUCOMETER DEV NAME(LOC) 3EI B; GLUCOSE,POINT OF CARE 239 MG/DL (70-110)
[2018-01-01 06:34] VITALS: BP 136/95
[2018-01-01] MEDS: MetFORMIN HCL 500 MG TABLET PO SCH ×2 (06:52→16:43)
[2018-01-01] MEDS: GlipiZIDE 10 MG TABLET PO SCH ×2 (06:52→16:43)
[2018-01-01] MEDS: INSULIN ASPART 100 UNITS/ML SQ PRN ×3 (07:09→17:52)
[2018-01-01] MEDS: HYDROCHLOROTHIAZIDE 25 MG TABLET PO SCH (09:10)
[2018-01-01] MEDS: FLUoxetine HCL 20 MG CAPSULE PO SCH (09:10)
[2018-01-01] MEDS: OMEPRAZOLE 20 MG CAPSULE PO SCH (09:10)
[2018-01-01] MEDS: DOCUSATE SODIUM 100 MG CAPSULE PO SCH (09:10)
[2018-01-01] MEDS: AmLODIPine BESYLATE 5 MG TABLET PO SCH (09:10)
[2018-01-01] MEDS: LOVASTATIN 20 MG TABLET PO SCH (09:10)
[2018-01-01 10:28] VITALS: BP 136/84
[2018-01-01 11:23] LABS: GLUCOMETER DEV NAME(LOC) 3EX 1; GLUCOSE,POINT OF CARE 296 MG/DL (70-110)
[2018-01-01 16:42] VITALS: BP 134/82
[2018-01-01 16:43] LABS: GLUCOMETER DEV NAME(LOC) 3EX 1; GLUCOSE,POINT OF CARE 284 MG/DL (70-110)
[2018-01-01] MEDS: OLANZapine 5 MG TABLET PO SCH (20:34)
[2018-01-01 22:53] LABS: GLUCOMETER DEV NAME(LOC) 3EX 1; GLUCOSE,POINT OF CARE 138 MG/DL (70-110)
[2018-01-02 05:58] LABS: GLUCOMETER DEV NAME(LOC) 3EI B; GLUCOSE,POINT OF CARE 243 MG/DL (70-110)
[2018-01-02 06:30] VITALS: BP 130/87
[2018-01-02] MEDS: MetFORMIN HCL 500 MG TABLET PO SCH ×2 (07:04→16:44)
[2018-01-02] MEDS: GlipiZIDE 10 MG TABLET PO SCH ×2 (07:04→16:44)
[2018-01-02] MEDS: INSULIN ASPART 100 UNITS/ML SQ PRN ×4 (07:15→20:47)
[2018-01-02] MEDS: HYDROCHLOROTHIAZIDE 25 MG TABLET PO SCH (08:53)
[2018-01-02] MEDS: DOCUSATE SODIUM 100 MG CAPSULE PO SCH (08:53)
[2018-01-02] MEDS: OMEPRAZOLE 20 MG CAPSULE PO SCH (08:53)
[2018-01-02] MEDS: AmLODIPine BESYLATE 5 MG TABLET PO SCH (08:53)
[2018-01-02] MEDS: LOVASTATIN 20 MG TABLET PO SCH (08:54)
[2018-01-02] MEDS: FLUoxetine HCL 20 MG CAPSULE PO SCH (08:54)
[2018-01-02 10:43] VITALS: BP 118/78
[2018-01-02 11:44] LABS: GLUCOMETER DEV NAME(LOC) 3EX 1; GLUCOSE,POINT OF CARE 223 MG/DL (70-110)
[2018-01-02 17:45] VITALS: BP 125/78
[2018-01-02] MEDS: IBUPROFEN 600 MG TABLET PO PRN (17:50)
[2018-01-02 20:13] LABS: GLUCOMETER DEV NAME(LOC) 3EX 1; GLUCOSE,POINT OF CARE 301 MG/DL (70-110)
[2018-01-02] MEDS: OLANZapine 5 MG TABLET PO SCH (20:45)
[2018-01-02 20:52] LABS: GLUCOMETER DEV NAME(LOC) 3EX 1; GLUCOSE,POINT OF CARE 154 MG/DL (70-110)
[2018-01-03 06:03] VITALS: BP 136/83
[2018-01-03 06:29] LABS: GLUCOMETER DEV NAME(LOC) 3EI B; GLUCOSE,POINT OF CARE 200 MG/DL (70-110)
[2018-01-03] MEDS: MetFORMIN HCL 500 MG TABLET PO SCH ×2 (06:39→16:34)
[2018-01-03] MEDS: GlipiZIDE 10 MG TABLET PO SCH ×2 (06:39→16:29)
[2018-01-03] MEDS: INSULIN ASPART 100 UNITS/ML SQ PRN ×4 (06:42→20:58)
[2018-01-03 08:00] VITALS: BP 130/78
[2018-01-03] MEDS: FLUoxetine HCL 20 MG CAPSULE PO SCH (08:56)
[2018-01-03] MEDS: DOCUSATE SODIUM 100 MG CAPSULE PO SCH (08:56)
[2018-01-03] MEDS: OMEPRAZOLE 20 MG CAPSULE PO SCH (08:56)
[2018-01-03] MEDS: AmLODIPine BESYLATE 5 MG TABLET PO SCH (08:57)
[2018-01-03] MEDS: LOVASTATIN 20 MG TABLET PO SCH (08:57)
[2018-01-03] MEDS: HYDROCHLOROTHIAZIDE 25 MG TABLET PO SCH (08:57)
[2018-01-03 11:29] LABS: GLUCOMETER DEV NAME(LOC) 3EX 1; GLUCOSE,POINT OF CARE 270 MG/DL (70-110)
[2018-01-03 16:37] LABS: GLUCOMETER DEV NAME(LOC) 3EX 1; GLUCOSE,POINT OF CARE 313 MG/DL (70-110)
[2018-01-03 17:04] VITALS: BP 144/101
[2018-01-03] MEDS: OLANZapine 5 MG TABLET PO SCH (20:15)
[2018-01-03 20:33] LABS: GLUCOMETER DEV NAME(LOC) 3EX 1; GLUCOSE,POINT OF CARE 240 MG/DL (70-110)
[2018-01-04 05:43] LABS: GLUCOMETER DEV NAME(LOC) 3EI B; GLUCOSE,POINT OF CARE 236 MG/DL (70-110)
[2018-01-04 06:17] VITALS: BP 142/98
[2018-01-04] MEDS: GlipiZIDE 10 MG TABLET PO SCH ×2 (06:47→16:15)
[2018-01-04] MEDS: MetFORMIN HCL 500 MG TABLET PO SCH ×2 (06:47→16:15)
[2018-01-04] MEDS: INSULIN ASPART 100 UNITS/ML SQ PRN ×4 (06:54→21:26)
[2018-01-04] MEDS: OMEPRAZOLE 20 MG CAPSULE PO SCH (08:08)
[2018-01-04] MEDS: LOVASTATIN 20 MG TABLET PO SCH (08:08)
[2018-01-04] MEDS: HYDROCHLOROTHIAZIDE 25 MG TABLET PO SCH (08:08)
[2018-01-04] MEDS: DOCUSATE SODIUM 100 MG CAPSULE PO SCH (08:08)
[2018-01-04 08:09] VITALS: BP 142/105
[2018-01-04] MEDS: AmLODIPine BESYLATE 5 MG TABLET PO SCH (08:09)
[2018-01-04] MEDS: FLUoxetine HCL 20 MG CAPSULE PO SCH (08:09)
[2018-01-04 09:09] VITALS: BP 144/94
[2018-01-04] MEDS: LORazepam 2 MG TABLET PO PRN ×2 (10:04→19:21)
[2018-01-04 11:44] LABS: GLUCOMETER DEV NAME(LOC) 3EX 1; GLUCOSE,POINT OF CARE 224 MG/DL (70-110)
[2018-01-04 16:43] LABS: GLUCOMETER DEV NAME(LOC) 3EX 1; GLUCOSE,POINT OF CARE 416 MG/DL (70-110)
[2018-01-04 17:33] LABS: GLUCOMETER DEV NAME(LOC) 3EX 1; GLUCOSE,POINT OF CARE 357 MG/DL (70-110)
[2018-01-04 19:20] VITALS: BP 142/89
[2018-01-04] MEDS: OLANZapine 5 MG TABLET PO SCH (20:30)
[2018-01-05 06:34] LABS: GLUCOMETER DEV NAME(LOC) 3EI B; GLUCOSE,POINT OF CARE 233 MG/DL (70-110)
[2018-01-05] MEDS: GlipiZIDE 10 MG TABLET PO SCH ×2 (07:18→16:25)
[2018-01-05] MEDS: MetFORMIN HCL 500 MG TABLET PO SCH ×2 (07:18→16:25)
[2018-01-05] MEDS: INSULIN ASPART 100 UNITS/ML SQ PRN ×3 (07:23→20:42)
[2018-01-05 08:00] VITALS: BP 155/104
[2018-01-05] MEDS: DOCUSATE SODIUM 100 MG CAPSULE PO SCH (08:27)
[2018-01-05] MEDS: HYDROCHLOROTHIAZIDE 25 MG TABLET PO SCH (08:27)
[2018-01-05] MEDS: LOVASTATIN 20 MG TABLET PO SCH (08:27)
[2018-01-05] MEDS: AmLODIPine BESYLATE 5 MG TABLET PO SCH (08:27)
[2018-01-05] MEDS: FLUoxetine HCL 20 MG CAPSULE PO SCH (08:28)
[2018-01-05] MEDS: OMEPRAZOLE 20 MG CAPSULE PO SCH (08:28)
[2018-01-05 16:15] VITALS: BP 139/94
[2018-01-05 16:43] LABS: GLUCOMETER DEV NAME(LOC) 3EX 1; GLUCOSE,POINT OF CARE 436 MG/DL (70-110)
[2018-01-05 16:52] LABS: GLUCOMETER DEV NAME(LOC) 3EX 1; GLUCOSE,POINT OF CARE 384 MG/DL (70-110)
[2018-01-05] MEDS: OLANZapine 5 MG TABLET PO SCH (20:34)
[2018-01-05 20:43] LABS: GLUCOMETER DEV NAME(LOC) 3EX 1; GLUCOSE,POINT OF CARE 266 MG/DL (70-110)
[2018-01-05 21:26] VITALS: BP 126/85
[2018-01-05] MEDS: IBUPROFEN 600 MG TABLET PO PRN (21:26)
[2018-01-06 05:53] LABS: GLUCOMETER DEV NAME(LOC) 3EI B; GLUCOSE,POINT OF CARE 234 MG/DL (70-110)
[2018-01-06] MEDS: GlipiZIDE 10 MG TABLET PO SCH ×2 (06:57→16:05)
[2018-01-06] MEDS: MetFORMIN HCL 500 MG TABLET PO SCH ×2 (06:57→17:13)
[2018-01-06] MEDS: INSULIN ASPART 100 UNITS/ML SQ PRN ×4 (07:21→20:33)
[2018-01-06 08:10] VITALS: BP 162/103
[2018-01-06] MEDS: AmLODIPine BESYLATE 5 MG TABLET PO SCH (08:14)
[2018-01-06] MEDS: OMEPRAZOLE 20 MG CAPSULE PO SCH (08:14)
[2018-01-06] MEDS: LOVASTATIN 20 MG TABLET PO SCH (08:14)
[2018-01-06] MEDS: DOCUSATE SODIUM 100 MG CAPSULE PO SCH (08:14)
[2018-01-06] MEDS: HYDROCHLOROTHIAZIDE 25 MG TABLET PO SCH (08:14)
[2018-01-06] MEDS: FLUoxetine HCL 20 MG CAPSULE PO SCH (08:14)
[2018-01-06] MEDS: LISINOPRIL 10 MG TABLET PO SCH (08:14)
[2018-01-06 11:33] LABS: GLUCOMETER DEV NAME(LOC) 3EX 1; GLUCOSE,POINT OF CARE 237 MG/DL (70-110)
[2018-01-06] MEDS ORDERED: LISI-661 PO (13:55)
[2018-01-06 16:07] LABS: GLUCOMETER DEV NAME(LOC) 3EX 1; GLUCOSE,POINT OF CARE 195 MG/DL (70-110)
[2018-01-06 17:47] VITALS: BP 138/92
[2018-01-06] MEDS: OLANZapine 5 MG TABLET PO SCH (20:02)
[2018-01-06 20:08] LABS: GLUCOMETER DEV NAME(LOC) 3EX 1; GLUCOSE,POINT OF CARE 222 MG/DL (70-110)
[2018-01-07 06:18] LABS: GLUCOMETER DEV NAME(LOC) 3EI B; GLUCOSE,POINT OF CARE 304 MG/DL (70-110)
[2018-01-07 06:32] VITALS: BP 129/94
[2018-01-07] MEDS: INSULIN ASPART 100 UNITS/ML SQ PRN (06:50)
[2018-01-07] MEDS: MetFORMIN HCL 500 MG TABLET PO SCH (07:09)
[2018-01-07] MEDS: GlipiZIDE 10 MG TABLET PO SCH (07:09)
[2018-01-07] MEDS: LISINOPRIL 10 MG TABLET PO SCH (07:56)
[2018-01-07] MEDS: FLUoxetine HCL 20 MG CAPSULE PO SCH (07:56)
[2018-01-07] MEDS: DOCUSATE SODIUM 100 MG CAPSULE PO SCH (07:56)
[2018-01-07] MEDS: OMEPRAZOLE 20 MG CAPSULE PO SCH (07:56)
[2018-01-07] MEDS: HYDROCHLOROTHIAZIDE 25 MG TABLET PO SCH (07:56)
[2018-01-07] MEDS: AmLODIPine BESYLATE 5 MG TABLET PO SCH (07:56)
[2018-01-07] MEDS: LOVASTATIN 20 MG TABLET PO SCH (07:56)
[2018-01-07 08:00] VITALS: BP 130/92
== END 2018-01-07 08:30 | disposition home or self-care (01) | DRG 885 ==
LOC: EMS 07:56 → B2X 11:00 → 3EX 12-31 20:18
PROVIDERS: ADMIT Psychiatry & Neurology Child & Adolescent Psychiatry; ATTEND Psychiatry & Neurology Child & Adolescent Psychiatry
DX: F25.0 Schizoaffective disorder, bipolar type (principal); R45.851 Suicidal ideations; E11.65 Type 2 diabetes mellitus with hyperglycemia; F41.9 Anxiety disorder, unspecified; G47.00 Insomnia, unspecified; G47.33 Obstructive sleep apnea (adult) (pediatric); I10 Essential (primary) hypertension; J44.9 Chronic obstructive pulmonary disease, unspecified; F10.10 Alcohol abuse, uncomplicated; F12.10 Cannabis abuse, uncomplicated; E87.6 Hypokalemia; F14.10 Cocaine abuse, uncomplicated; F15.10 Other stimulant abuse, uncomplicated; F17.200 Nicotine dependence, unspecified, uncomplicated; Z59.0 Homelessness; Z79.899 Other long term (current) drug therapy; Z79.84 Long term (current) use of oral hypoglycemic drugs
CPT/HCPCS: 82962; 84132; 87081; 94660; 99285; G0480

== ENCOUNTER 2018-09-12 07:24 | Inpatient (IN) | payer MEDICARE, MEDICAID ==
[~2018-09-12] VITALS: Ht 167.6 cm; Wt 90.8 kg
[~2018-09-12 07:24] MED LIST changes: +LISI-661 PO
[2018-09-12 07:39] LABS: GLUCOSE,POINT OF CARE 235 MG/DL (70-110)
[2018-09-12 08:12] LABS: BASOPHILS % (AUTO) 0.9 % (0.0-2.0); EOSINOPHILS % (AUTO) 6.2 % (1.0-6.0); HEMATOCRIT 38.5 % (41-53); HEMOGLOBIN 13.1 g/dL (13.5-17.5); LYMPHOCYTES # (AUTO) 1.4 K/uL (1.0-4.8); LYMPHOCYTES % (AUTO) 25.9 % (22.0-44.0); MEAN CORPUSCULAR HEMOGLOBIN 31.3 pg (26.0-34.0); MEAN CORPUSCULAR VOLUME 92 fL (80-100); MONOCYTES # (AUTO) 0.5 K/uL (0.1-1.0); MONOCYTES % (AUTO) 9.7 % (2.0-9.0); NEUTROPHILS # (AUTO) 3.1 K/uL (1.8-7.7); NEUTROPHILS % (AUTO) 57.3 % (40.0-70.0); PLATELET COUNT (AUTO) 203 K/uL (150-450); RED BLOOD CELL COUNT(AUTO) 4.19 MIL/uL (4.50-5.90); RED CELL DISTRIBUTION WIDTH 13.7 % (11.5-14.5)
[2018-09-12 08:25] LABS: ANION GAP 7 mmol/L (8-16); CALCIUM, TOTAL 8.8 mg/dL (8.8-10.5); CARBON DIOXIDE 30 mmol/L (22-29); CHLORIDE 99 mmol/L (98-107); CREATININE 1.23 mg/dL (0.60-1.30); GLOMERULAR FILTR. RATE CALC > 60 mL/min (>60); GLUCOSE,RANDOM 245 mg/dL (70-110); POTASSIUM 3.4 mmol/L (3.5-5.1); SODIUM SERUM 136 mmol/L (136-145); UREA NITROGEN, BLOOD 17 mg/dL (7-18)
[2018-09-12 08:31] LABS: ALANINE AMINOTRANSFERASE 19 U/L (12-78); ALBUMIN 3.4 g/dL (3.4-5.0); ALKALINE PHOSPHATASE 76 U/L (46-116); ASPARTATE AMINOTRANSFERASE 11 U/L (15-37); BILIRUBIN,TOTAL 0.3 mg/dL (0.1-1.0); TOTAL PROTEIN, SERUM 7.7 g/dL (6.4-8.2)
[2018-09-12 08:34] LABS: AMPHET/METH SCREEN,URINE NEGATIVE (NEGATIVE); BARBITURATE SCREEN, URINE NEGATIVE (NEGATIVE); BENZODIAZEPINES SCREEN,URINE NEGATIVE (NEGATIVE); CANNABINOID SCREEN,URINE NEGATIVE (NEGATIVE); COCAINE SCREEN,URINE NEGATIVE (NEGATIVE); METHADONE SCREEN, URINE NEGATIVE (NEGATIVE); OPIATE SCREEN,URINE NEGATIVE (NEGATIVE)
[2018-09-12 08:37] LABS: PHENCYCLIDINE SCREEN,URINE NEGATIVE (NEGATIVE)
[2018-09-12] MEDS ORDERED: HALOPERIDOL 5 MG TABLET PO PRN (10:15)
[2018-09-12] MEDS ORDERED: ZOLPIDEM TARTRATE 10 MG TABLET PO PRN (10:15)
[2018-09-12 10:24] VITALS: BP 139/81
[2018-09-12] MEDS: LORazepam 2 MG TABLET PO PRN ×2 (10:30→20:11)
[2018-09-12 13:04] LABS: GLUCOMETER DEV NAME(LOC) BV2N3; GLUCOSE,POINT OF CARE 328 MG/DL (70-110)
[2018-09-12 13:09] LABS: APPEARANCE,URINE CLEAR (CLEAR); BILIRUBIN,URINE NEGATIVE (NEGATIVE); GLUCOSE, URINE (UA) 250 mg/dL (NEGATIVE); KETONES,URINE NEGATIVE (NEGATIVE); LEUKOCYTE ESTERASE ,URINE NEGATIVE (NEGATIVE); NITRATE,URINE NEGATIVE (NEGATIVE); OCCULT BLOOD,URINE NEGATIVE (NEGATIVE); PH,URINE 6.5 (5.0-8.0)
[2018-09-12] MEDS ORDERED: MAG HYDROX/AL HYDROX/SIMETH ES 30 ML SUSPENSION UDCUP PO PRN (13:15)
[2018-09-12] MEDS ORDERED: CloNIDine HCL 0.1 MG TABLET PO PRN (13:15)
[2018-09-12] MEDS ORDERED: GuaiFENesin/D-METHORPHAN [SUGAR-FREE] 200-20MG/10 ML SYRUP UDCUP PO PRN (13:15)
[2018-09-12] MEDS ORDERED: LOPERAMIDE HCL 2 MG CAPSULE PO PRN (13:15)
[2018-09-12] MEDS ORDERED: IBUPROFEN 400 MG TABLET PO PRN (13:15)
[2018-09-12] MEDS ORDERED: MAGNESIUM HYDROXIDE SUSPENSION 30 ML UDCUP PO PRN (13:15)
[2018-09-12] MEDS ORDERED: ACETAMINOPHEN 325 MG TABLET PO PRN (13:15)
[2018-09-12] MEDS ORDERED: PETROLATUM,WHITE 71 GM JELLY TP PRN (13:15)
[2018-09-12 13:17] LABS: PROTEIN,URINE NEGATIVE (NEGATIVE)
[2018-09-12 13:24] LABS: BACTERIA,URINE None Seen /HPF (None Seen); RBC,URINE None Seen /HPF (0-2); WBC,URINE None Seen /HPF (0-5)
[2018-09-12] MEDS ORDERED: GLUCAGON,HUMAN RECOMBINANT 1 MG VIAL IM PRN (13:30)
[2018-09-12 13:32] VITALS: BP 148/103
[2018-09-12] MEDS: LISINOPRIL 10 MG TABLET PO SCH (13:35)
[2018-09-12] MEDS: HYDROCHLOROTHIAZIDE 25 MG TABLET PO SCH (13:35)
[2018-09-12] MEDS: AmLODIPine BESYLATE 5 MG TABLET PO SCH (13:35)
[2018-09-12] MEDS: INSULIN LISPRO 100 UNITS/ML SQ PRN ×3 (13:42→21:02)
[2018-09-12 15:09] VITALS: BP 139/81
[2018-09-12 16:10] VITALS: BP 113/70
[2018-09-12] MEDS: GlipiZIDE 10 MG TABLET PO SCH (16:35)
[2018-09-12] MEDS: LOVASTATIN 20 MG TABLET PO SCH (16:35)
[2018-09-12] MEDS: MetFORMIN HCL 500 MG TABLET PO SCH (16:35)
[2018-09-12 16:40] LABS: GLUCOMETER DEV NAME(LOC) BV2N3; GLUCOSE,POINT OF CARE 258 MG/DL (70-110)
[2018-09-12 20:24] LABS: GLUCOMETER DEV NAME(LOC) BV2N3; GLUCOSE,POINT OF CARE 183 MG/DL (70-110)
[2018-09-12] MEDS ORDERED: POTASSIUM CHLORIDE 20 MEQ ER TABLET PO ONE (21:15)
[2018-09-13 04:08] VITALS: BP 114/80
[2018-09-13] MEDS: INSULIN LISPRO 100 UNITS/ML SQ PRN ×4 (06:58→20:42)
[2018-09-13] MEDS: GlipiZIDE 10 MG TABLET PO SCH ×2 (06:59→16:33)
[2018-09-13] MEDS: MetFORMIN HCL 500 MG TABLET PO SCH ×2 (06:59→16:33)
[2018-09-13 07:19] LABS: GLUCOMETER DEV NAME(LOC) BV2N3; GLUCOSE,POINT OF CARE 235 MG/DL (70-110)
[2018-09-13 08:14] VITALS: BP 132/80
[2018-09-13] MEDS: LISINOPRIL 10 MG TABLET PO SCH (08:55)
[2018-09-13] MEDS: HYDROCHLOROTHIAZIDE 25 MG TABLET PO SCH (08:55)
[2018-09-13] MEDS: AmLODIPine BESYLATE 5 MG TABLET PO SCH (08:55)
[2018-09-13] MEDS: LOVASTATIN 20 MG TABLET PO SCH (08:55)
[2018-09-13 09:01] LABS: CHOL/HDL RATIO 3.6 (4.2-7.3); POTASSIUM 4.1 mmol/L (3.5-5.1)
[2018-09-13 11:04] LABS: GLUCOMETER DEV NAME(LOC) BV2N3; GLUCOSE,POINT OF CARE 208 MG/DL (70-110)
[2018-09-13] MEDS: LORazepam 2 MG TABLET PO PRN (13:54)
[2018-09-13 16:09] VITALS: BP 121/84
[2018-09-13 16:34] LABS: GLUCOMETER DEV NAME(LOC) BV2N3; GLUCOSE,POINT OF CARE 304 MG/DL (70-110)
[2018-09-13 20:38] LABS: GLUCOMETER DEV NAME(LOC) BV2N3; GLUCOSE,POINT OF CARE 244 MG/DL (70-110)
[2018-09-13] MEDS: OLANZapine 5 MG TABLET PO SCH (20:38)
[2018-09-14 02:53] VITALS: BP 137/83
[2018-09-14 05:54] LABS: GLUCOMETER DEV NAME(LOC) BV2N3; GLUCOSE,POINT OF CARE 193 MG/DL (70-110)
[2018-09-14] MEDS: GlipiZIDE 10 MG TABLET PO SCH ×2 (05:55→16:31)
[2018-09-14] MEDS: MetFORMIN HCL 500 MG TABLET PO SCH ×2 (06:36→16:31)
[2018-09-14] MEDS: INSULIN LISPRO 100 UNITS/ML SQ PRN ×4 (06:37→20:23)
[2018-09-14 08:20] VITALS: BP 109/70
[2018-09-14 08:38] VITALS: BP 131/79
[2018-09-14] MEDS: LOVASTATIN 20 MG TABLET PO SCH (08:39)
[2018-09-14] MEDS: AmLODIPine BESYLATE 5 MG TABLET PO SCH (08:39)
[2018-09-14] MEDS: LISINOPRIL 10 MG TABLET PO SCH (08:39)
[2018-09-14] MEDS: HYDROCHLOROTHIAZIDE 25 MG TABLET PO SCH (08:39)
[2018-09-14] MEDS: FLUoxetine HCL 20 MG CAPSULE PO SCH (08:39)
[2018-09-14 11:04] LABS: GLUCOMETER DEV NAME(LOC) BV2N3; GLUCOSE,POINT OF CARE 203 MG/DL (70-110)
[2018-09-14] MEDS: LORazepam 2 MG TABLET PO PRN (12:01)
[2018-09-14 16:34] LABS: GLUCOMETER DEV NAME(LOC) BV2N3; GLUCOSE,POINT OF CARE 196 MG/DL (70-110)
[2018-09-14 17:45] VITALS: BP 127/68
[2018-09-14 20:19] LABS: GLUCOMETER DEV NAME(LOC) BV2N3; GLUCOSE,POINT OF CARE 221 MG/DL (70-110)
[2018-09-14] MEDS: OLANZapine 5 MG TABLET PO SCH (20:40)
[2018-09-15 01:24] VITALS: BP 125/82
[2018-09-15] MEDS: GlipiZIDE 10 MG TABLET PO SCH (06:14)
[2018-09-15 06:15] LABS: GLUCOMETER DEV NAME(LOC) BV2N3; GLUCOSE,POINT OF CARE 207 MG/DL (70-110)
[2018-09-15] MEDS: MetFORMIN HCL 500 MG TABLET PO SCH (06:16)
[2018-09-15] MEDS: INSULIN LISPRO 100 UNITS/ML SQ PRN ×2 (06:39→11:08)
[2018-09-15 08:23] VITALS: BP 111/82
[2018-09-15] MEDS: HYDROCHLOROTHIAZIDE 25 MG TABLET PO SCH (09:15)
[2018-09-15] MEDS: AmLODIPine BESYLATE 5 MG TABLET PO SCH (09:15)
[2018-09-15] MEDS: LISINOPRIL 10 MG TABLET PO SCH (09:15)
[2018-09-15] MEDS: FLUoxetine HCL 20 MG CAPSULE PO SCH (09:15)
[2018-09-15 11:14] LABS: GLUCOMETER DEV NAME(LOC) BV2N3; GLUCOSE,POINT OF CARE 236 MG/DL (70-110)
[2018-09-15] MEDS ORDERED: LOVASTATIN 20 MG TABLET PO SCH (17:00)
== END 2018-09-15 13:25 | disposition home or self-care (01) | DRG 885 ==
LOC: EMS 07:25 → B2X 11:19
PROVIDERS: ADMIT Psychiatry & Neurology Psychiatry; ATTEND Psychiatry & Neurology Psychiatry
DX: F25.0 Schizoaffective disorder, bipolar type (principal); E11.65 Type 2 diabetes mellitus with hyperglycemia; R45.851 Suicidal ideations; E87.6 Hypokalemia; E78.5 Hyperlipidemia, unspecified; D64.9 Anemia, unspecified; K21.9 Gastro-esophageal reflux disease without esophagitis; I10 Essential (primary) hypertension; F41.9 Anxiety disorder, unspecified; F12.90 Cannabis use, unspecified, uncomplicated; F11.90 Opioid use, unspecified, uncomplicated; F14.90 Cocaine use, unspecified, uncomplicated; K59.09 Other constipation; F10.10 Alcohol abuse, uncomplicated; Z71.41 Alcohol abuse counseling and surveillance of alcoholic; Z71.51 Drug abuse counseling and surveillance of drug abuser; Z59.0 Homelessness; Z87.891 Personal history of nicotine dependence; Z91.14 Patient's other noncompliance with medication regimen; Z79.899 Other long term (current) drug therapy
CPT/HCPCS: 84132; G0480